=== PATIENT | male | born 1940 | race Caucasian/White ===

== ENCOUNTER → 2017-03-08 | Outpatient (CLI) | payer MEDICARE, BC ==
[2017-03-08] MEDS: IOHEXOL 300 MG/ML 75 ML VIAL. IV ONE (09:54)
--- NOTE | 2017-03-08 14:59 | RAD ---
EXAM: Bone scintigraphy. HISTORY: Prostate cancer, rising PSA, right hip pain. TECHNIQUE: Following the intravenous injection of 25.0 mCi of Tc-99m labeled methylene diphosphonate (MDP), delayed images of the whole body were performed in anterior and posterior projections. Comparison is made with today's CT in the prior study of 12/10/2015. FINDINGS: There is a new large focus of intense uptake within the right iliac wing corresponding with an ill-defined region of sclerosis on CT. This is consistent with a metastasis. Additional new metastases are seen within L5, T11 and the left 10th posterior rib. Additional questionable foci are suspected within the left anterior iliac wing and the left scapular body superomedially. 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 Uptake at the right mandible is likely odontogenic. IMPRESSION: 1. New metastatic deposits within the right iliac wing, T11, L5 and the left 10th posterior rib.
--- NOTE | 2017-03-08 15:04 | RAD ---
EXAM: CT abdomen/pelvis with contrast. HISTORY: Prostate cancer status post radiation therapy. Rising PSA. Right hip pain. TECHNIQUE: Computed tomography of the abdomen and pelvis was performed after the intravenous administration of iodinated contrast. COMPARISON: Today's bone scintigraphy. FINDINGS: Lung windows through the visualized portions of the bases reveal changes of interstitial lung disease and mild fibrosis. There is mild traction bronchiectasis in the costophrenic angles. The heart is at least mildly enlarged. Changes of coronary artery bypass grafting are partially visualized. Bone windows reveal ill-defined regions of sclerosis consistent with metastatic disease within T11, L5, the left posterior 10th rib and the right iliac wing, consistent with metastatic disease. The liver, gallbladder, pancreas, adrenal glands and spleen are unremarkable. Cysts in the kidneys measure up to 3 cm on the left. There are no pathologically enlarged lymph nodes. Radiation fiducial markers are seen within the prostate. There is no gross extracapsular extension of a prosthetic mass. There is a region of soft tissue density within the right aspect of the space of [place] which is indeterminate but may reflect prior inguinal hernia repair. A small right inguinal hernia persists and contains only fat. There is diffuse bladder wall thickening. IMPRESSION: 1. Interval development of osseous metastatic disease as above. 2. A soft tissue density within the right aspect of the space of Retzius may reflect a prior inguinal hernia repair. Correlate for such history. Small residual/recurrent fat-containing right inguinal hernia. 3. Diffuse bladder wall thickening indicates chronic outlet obstruction or inflammation. Correlate with urinalysis. 4. Interstitial lung disease and fibrosis in the costophrenic angles. 5. Mild cardiomegaly. *One or more of the following individualized dose reduction techniques were utilized for this examination: 1. Automated exposure control. 2. Adjustment of the mA and/or kV according to patient size. 3. Use of iterative reconstruction technique.
== END | disposition home or self-care (01) ==
LOC: NM 08:20
PROVIDERS: ATTEND Radiology Radiation Oncology
DX: C79.51 Secondary malignant neoplasm of bone (principal); C61 Malignant neoplasm of prostate; R97.21 Rising PSA following treatment for malignant neoplasm of prostate; J84.10 Pulmonary fibrosis, unspecified; J47.9 Bronchiectasis, uncomplicated; I51.7 Cardiomegaly; N28.1 Cyst of kidney, acquired; K40.91 Unilateral inguinal hernia, without obstruction or gangrene, recurrent; J98.4 Other disorders of lung; M25.551 Pain in right hip; Z92.3 Personal history of irradiation
CPT/HCPCS: 74177; 78306; 96374; A9503; Q9967

== ENCOUNTER 2018-03-26 20:08 | Inpatient (IN) | payer MEDICARE, BC ==
[~2018-03-26] VITALS: Ht 172.7 cm; Wt 77.6 kg
[2018-03-26] MEDS ORDERED: IV NORMAL SALINE 1,000ML 1,000 ML IV ONE (20:15)
--- NOTE | 2018-03-26 20:22 | ED.ADGEN ---
Past History Past Medical History: Anxiety, CAD, Cancer, COPD, GA, Prostatitis, Other Past Surgical History: Gastric Bypass, Other Adult General Chief Complaint Chief Complaint " He seem okay Monday... but he gotten more confused thru. the weekend... and got really confused today.. seem to have problem finding the right words.. or caring on a conversation with us... " Son's HPI HPI Patient is a 77 year old male who presents with hx of mental status change. Hx. of increased confusion, expressive aphasia, generalized weakness the last 3 days. . Pt. marked change today of generalized weakness, malaise and increase confusion. . . Pt. does have hx of Metastatic Prostate cancer to spine and just recently began spinal radiation for tx of pain. Pt. follows with Dr. Klein. Discussed pt. with Dr. Klein, states he has normally be fairly clear mentally. Pt. at [facility] refuse tx. of prostate cancer, but recently started on [place] treatments. Pt. in past has been DNR. Review of Systems Review of Systems Constitutional: Denies fever or chills [] Eyes: Denies change in visual acuity, redness, or eye pain [] HENT: Denies nasal congestion or sore throat [] Respiratory: Denies cough or shortness of breath [] Cardiovascular: No additional information not addressed in HPI [] GI: Denies abdominal pain, nausea, vomiting, bloody stools or diarrhea [] : Denies dysuria or hematuria [] Musculoskeletal: Denies back pain or joint pain [] Integument: Denies rash or skin lesions [] Neurologic: Denies headache, focal weakness or sensory changes [] Endocrine: Denies polyuria or polydipsia [] All other systems were reviewed and found to be within normal limits, except as documented in this note. Current Medications Current Medications Current Medications Medications (Trade) Dose Ordered Sig/Jacobo Start Time Stop Time Status Last Admin Dose Admin Ceftriaxone Sodium 1 gm/ Sodium Chloride 50 ml @ 100 mls/hr 1X ONCE 03/26/18 23:00 03/26/18 23:29 DC 03/26/18 22:56 100 MLS/HR Ceftriaxone Sodium (Rocephin) 1 gm STK-MED ONCE 03/26/18 22:51 03/26/18 22:52 DC Furosemide (Lasix) 40 mg 1X ONCE 03/26/18 23:15 03/26/18 23:16 DC 03/26/18 22:58 40 MG Lactated Ringer's 1,000 ml @ 160 mls/hr Q6H15M 03/26/18 22:30 03/27/18 05:57 160 MLS/HR Methylprednisolone Sodium Succinate (SOLU-Medrol 125MG VIAL) 125 mg 1X ONCE 03/26/18 23:00 03/26/18 23:01 DC 03/26/18 22:54 125 MG Ondansetron HCl (Zofran) 4 mg PRN Q4HRS PRN 03/26/18 22:30 03/27/18 22:29 Potassium Chloride (KCl Oral Soln) 40 meq 1X ONCE 03/26/18 23:00 03/26/18 23:01 DC 03/26/18 22:55 40 MEQ Sodium Chloride 50 ml @ As Directed STK-MED ONCE 03/26/18 22:50 03/26/18 22:51 DC Allergies Allergies Allergies Coded Allergies Type Severity Reaction Last Updated Verified No Known Drug Allergies 03/08/17 No Physical Exam Physical Exam Constitutional: Well developed, well nourished, no acute distress, non-toxic appearance. [] HENT: Normocephalic, atraumatic, bilateral external ears normal, oropharynx moist, no oral exudates, nose normal. [] Eyes: PERRLA, EOMI, conjunctiva normal, no discharge. [] Neck: Normal range of motion, no tenderness, supple, no stridor. [] Cardiovascular:Heart rate regular rhythm, no murmur [] Lungs & Thorax: Bilateral breath sounds clear to auscultation [] Abdomen: Bowel sounds normal, soft, no tenderness, no masses, no pulsatile masses. [] Skin: Warm, dry, no erythema, no rash. [] Back: No tenderness, no CVA tenderness. [] Extremities: No tenderness, no cyanosis, no clubbing, ROM intact, no edema. [] Neurologic: Alert and oriented X 3, normal motor function, normal sensory function, no focal deficits noted. [] Psychologic: Affect normal, judgement normal, mood normal. [] Current Patient Data Vital Signs Vital Signs Date Time Temp Pulse Resp B/P (MAP) Pulse Ox O2 Delivery O2 Flow Rate FiO2 03/26/18 23:37 97 24 116/59 (78) 97 Room Air 03/26/18 20:10 98.8 Lab Results Laboratory Tests Test 03/26/18 20:22 03/26/18 21:22 03/26/18 23:10 White Blood Count 7.9 x10^3/uL (4.0-11.0) Red Blood Count 3.17 x10^6/uL (4.30-5.70) L Hemoglobin 9.7 g/dL (13.0-17.5) L Hematocrit 29.5 % (39.0-53.0) L Mean Corpuscular Volume 93 fL (79-100) Mean Corpuscular Hemoglobin 31 pg (25-35) Mean Corpuscular Hemoglobin Concent 33 g/dL (31-37) Red Cell Distribution Width 16.7 % (11.5-14.5) H Platelet Count 359 x10^3/uL (140-400) Neutrophils (%) (Auto) 88 % (31-73) H Lymphocytes (%) (Auto) 4 % (24-48) L Monocytes (%) (Auto) 8 % (0-9) Eosinophils (%) (Auto) 0 % (0-3) Basophils (%) (Auto) 0 % (0-3) Neutrophils # (Auto) 6.9 x10^3uL (1.8-7.7) Lymphocytes # (Auto) 0.3 x10^3/uL (1.0-4.8) L Monocytes # (Auto) 0.7 x10^3/uL (0.0-1.1) Eosinophils # (Auto) 0.0 x10^3/uL (0.0-0.7) Basophils # (Auto) 0.0 x10^3/uL (0.0-0.2) Erythrocyte Sedimentation Rate > 130 (0-15) H Prothrombin Time 11.5 SEC (9.4-11.4) H Prothrombin Time INR 1.2 (0.9-1.1) H PTT 35 SEC (23-33) H Sodium Level 134 mmol/L (136-145) L Potassium Level 3.1 mmol/L (3.5-5.1) L Chloride Level 99 mmol/L (98-107) Carbon Dioxide Level 22 mmol/L (21-32) Anion Gap 13 (6-14) Blood Urea Nitrogen 11 mg/dL (8-26) Creatinine 0.8 mg/dL (0.7-1.3) Estimated GFR (Cockcroft-Gault) 93.5 Glucose Level 137 mg/dL (70-99) H Lactic Acid Level 1.8 mmol/L (0.4-2.0) Calcium Level 7.7 mg/dL (8.5-10.1) L Magnesium Level 1.9 mg/dL (1.8-2.4) Ammonia 18 mcmol/L (11-34) Creatine Kinase 730 U/L (39-308) H Creatine Kinase MB (Mass) < 0.5 ng/mL (0.0-3.6) Creatine Kinase MB Relative Index 0.1 % (0-4) Troponin I Quantitative 0.022 ng/mL (0-0.055) YZ-Had-S-Type Natriuretic Peptide 1795 pg/mL (0-449) H Ethyl Alcohol Level < 10 mg/dL (0-10) Urine Collection Type Unknown Urine Color Pia Urine Clarity Hazy Urine pH 7.0 Urine Specific [place] 1.020 Urine Protein 100 mg/dl (NEG-TRACE) Urine Glucose (UA) Neg mg/dL (NEG) Urine Ketones (Stick) 15 mg/dL (NEG) Urine Blood Neg (NEG) Urine Nitrite Neg (NEG) Urine Bilirubin Neg (NEG) Urine Urobilinogen Dipstick 4 mg/dL (0.2 mg/dL) Urine Leukocyte Esterase Neg (NEG) Urine RBC 3-5 /HPF (0-2) Urine WBC 5-10 /HPF (0-4) Urine Squamous Epithelial Cells Few /LPF Urine Bacteria 0 /HPF (0-FEW) Urine Hyaline Casts Few /HPF Urine Mucus Slight /LPF Urine Opiates Screen Neg (NEG) Urine Methadone Screen Neg (NEG) Urine Barbiturates Neg (NEG) Urine Phencyclidine Screen Neg (NEG) Urine Amphetamine/Methamphetamine Neg (NEG) Urine Benzodiazepines Screen Neg (NEG) Urine Cocaine Screen Neg (NEG) Urine Cannabinoids Screen Neg (NEG) Urine Ethyl Alcohol Neg (NEG) Blood pH 7.42 (7.35-7.46) Blood Gas PCO2 28 mmHg (35-46) L Blood Gas PO2 104 mmHg (71-100) H Blood Gas HCO3 18 mmol/L (21-28) L Arterial Bld O2 Saturation (Calc) 98 % (92-99) FiO2 28 % EKG EKG My interpretation of monitor shows a paced rhythm with periodic PVCs.[] Does have findings consistent with atrial flutter versus A. fib. My interpretation EKG shows atrial flutter with ventricular PVCs. Right axis deviation. Radiology/Procedures Radiology/Procedures My interpretation of chest x-ray shows cardiomegaly with left basilar atelectasis. Findings of previous coronary artery bypass past graft wires and pacer. Degenerative joint changes. No free air in the diaphragm. My interpretation of abdomen film shows some distended bowel loops. But in non- obstructive bowel gas pattern. Does have enlarged prostate. Appears to have implantation of radium and prostate. Does have lytic lesions of pelvis there appears to be marked degenerative joint changes and significant osteolytic changes of L5.[] My interpretation CT head and cervical shows no shift, mass, edema, bleed, or fracture. Does have significant degenerative joint changes of cervical spine. Does have significant atrophy changes at brain parenchyma.. Does have multiple focal sclerotic regions consistent with osteoblastic changes of metastatic lesions. See formal reports are available. Course & Med Decision Making Course & Med Decision Making Pertinent Labs and Imaging studies reviewed. (See chart for details) Pt. and family advised he wants to be DNR- No intubation, shocks or CPR. Will accept meds. Plan Admit to Tele.- Dr. Liang, Neuro consult in morning. Pt. mentation has improved since arrival to ED with fluids, steroids, KCL. Discussed options of home care including hospice with family members and patient. Discussed presentation, testing and treatment plan with . [] Final Impression Final Impression 1. Mental Status Change[] 2. Confusion 3. Elevated ESR >130 4. Anemia 9.7 5. Hyponatremia 134 6. Hypokalemia 3.1 7. DM 137 8. Elevated CK 730 9. CHF- BNP 1,795 10. Metastatic Prostate Cancer - Hip, Pelvis, Lumbar spine - getting Ra 223- last dosage 03/20 Winifred Disclaimer Julioon Disclaimer This electronic medical record was generated, in whole or in part, using a voice recognition dictation system. MAEGAN CRANE MD Mar 26, 2018 20:22
[2018-03-26 20:41] LABS: BASO % 0 % (0-3); EOS % 0 % (0-3); HEMATOCRIT 29.5 % (39.0-53.0); HEMOGLOBIN 9.7 g/dL (13.0-17.5); LYMPH # 0.3 x10^3/uL (1.0-4.8); LYMPH % 4 % (24-48); MEAN CORPUSCULAR HEMOGLOBIN 31 pg (25-35); MEAN CORPUSCULAR HGB CONC 33 g/dL (31-37); MEAN CORPUSCULAR VOLUME 93 fL (79-100); MONO # 0.7 x10^3/uL (0.0-1.1); MONO % 8 % (0-9); NEUT # 6.9 x10^3uL (1.8-7.7); NEUT % 88 % (31-73); PLATELET COUNT 359 x10^3/uL (140-400); RED BLOOD COUNT 3.17 x10^6/uL (4.30-5.70); RED CELL DISTRIBUTION WIDTH 16.7 % (11.5-14.5); WHITE BLOOD COUNT 7.9 x10^3/uL (4.0-11.0)
--- NOTE | 2018-03-26 21:03 | RAD ---
PQRS Compliance statement: One or more of the following individualized dose reduction techniques were utilized for this examination: 1. Automated exposure control. 2. Adjustment of the mA and/or kV according to patient size. 3. Use of iterative reconstruction technique. Indication:Fall, headache and neck pain TECHNIQUE: CT head without IV contrast COMPARISON:None FINDINGS: No pathologic extra-axial or intra-axial fluid collection. Mild diffuse cerebral atrophy. The ventricles and basal cisterns are within normal limits. No acute intracranial bleed. Mild periventricular and deep white matter low-attenuation is seen. No focal loss of [place]-white differentiation. No acute calvarial fractures. Visualized paranasal sinuses and mastoid air cells are clear. No large scalp hematoma. Orbits are within normal limits. IMPRESSION: 1. No acute intracranial bleed. 2. Mild diffuse cerebral atrophy with white matter changes most likely secondary to chronic microvascular ischemic disease. Indication:Fall, headache and neck pain TECHNIQUE: CT of the cervical spine without IV contrast with multiplanar reformats. COMPARISON:None FINDINGS: Cervical spine is in normal anatomic alignment. Atlantoaxial joint interval is preserved. No compression deformities. Facet joints are in normal anatomic alignment. Moderate C5-C6 and C6-C7 degenerative disc disease. No acute fractures. Multifocal sclerotic lesions are seen in the bones. The noncontrast appearance of the neck soft tissue is within normal limits. Significant atherosclerotic burden seen in the right carotid bulb. Visualized lung apices are clear. IMPRESSION: 1. No acute fractures. 2. 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 Electronically signed by: Hima Baer DO (03/26/2018 8:59 PM) [facility]
[2018-03-26 21:22] LABS: ANION GAP 13 (6-14); BLOOD UREA NITROGEN 11 mg/dL (8-26); CALCIUM 7.7 mg/dL (8.5-10.1); CARBON DIOXIDE 22 mmol/L (21-32); CHLORIDE 99 mmol/L (98-107); CREATININE 0.8 mg/dL (0.7-1.3); GFR 93.5; GLUCOSE 137 mg/dL (70-99); MAGNESIUM 1.9 mg/dL (1.8-2.4); POTASSIUM 3.1 mmol/L (3.5-5.1); SODIUM 134 mmol/L (136-145)
--- NOTE | 2018-03-26 21:41 | RAD ---
Indication:Dyspnea TECHNIQUE:Portable AP chest X-ray COMPARISON:None FINDINGS: Left chest wall cardiac pacer is seen with its leads projecting over the heart. Median sternotomy noted. Heart is normal in size. Lungs are clear. No pneumothorax or pleural effusion. Visualized bony thorax is within normal limits. IMPRESSION: No acute pulmonary process. Electronically signed by: Hima Baer DO (03/26/2018 9:37 PM) [facility]
[2018-03-26 21:48] LABS: AMPHETAMINE/METHAMPHETAMINE NEG (NEG); BARBITURATES NEG (NEG); BENZODIAZEPINES NEG (NEG); CANNABINOIDS NEG (NEG); COCAINE NEG (NEG); METHADONE NEG (NEG); OPIATES NEG (NEG); PHENCYCLIDINE NEG (NEG)
[2018-03-26 21:59] LABS: BACTERIA,URINE 0 /HPF (0-FEW); BILIRUBIN,URINE NEG (NEG); CLARITY,URINE HAZY; COLOR,URINE AMBER; GLUCOSE,URINE NEG (NEG); NITRITE,URINE NEG (NEG); SQUAMOUS EPITHELIAL CELL,UR FEW /LPF; UROBILINOGEN,URINE 4 mg/dL (0.2 mg/dL)
[2018-03-26 22:00] LABS: HYALINE CASTS, URINE FEW /HPF
[2018-03-26 22:04] LABS: SEDIMENTATION RATE > 130 (0-15)
[2018-03-26] MEDS ORDERED: ONDANSETRON PF 4 MG/2 ML VIAL. IV PRN (22:30)
[2018-03-26] MEDS ORDERED: IV NORMAL SALINE 50ML 50 ML ONE (22:50)
[2018-03-26] MEDS ORDERED: cefTRIAXone SODIUM 1 GM VIAL IV ONE (22:51)
[2018-03-26] MEDS: IV RINGERS SOLUTION,LACTATED 1,000 ML IV SCH (22:54)
[2018-03-26] MEDS ORDERED: POTASSIUM CHLORIDE 20 MEQ/15 ML ORAL LIQUID. PO ONE (23:00)
[2018-03-26] MEDS ORDERED: methylPREDNISolone SOD SUCC PF 125 MG/2 ML VIAL. IV ONE (23:00)
[2018-03-26] MEDS ORDERED: FUROSEMIDE 40 MG/4 ML VIAL IVP ONE (23:15)
--- NOTE | 2018-03-26 23:53 | RAD ---
Indication: Abdominal pain and distention TECHNIQUE: 2 views of the abdomen and pelvis COMPARISON: None FINDINGS: Visualized lung bases are clear. Heart is normal in size. No evidence of pneumoperitoneum. No abnormally dilated bowel loops. Visualized bones are within normal limits. IMPRESSION: Nonspecific bowel gas pattern. No evidence of high-grade bowel obstruction. Electronically signed by: Hima Baer DO (03/26/2018 11:49 PM) [facility]
[2018-03-27 00:17] VITALS: BP 110/67
[2018-03-27] MEDS ORDERED: PRED5TAB PO (03:02)
[2018-03-27] MEDS ORDERED: ASPI-630 PO (03:02)
[2018-03-27] MEDS ORDERED: ABIR500T PO (03:02)
[2018-03-27] MEDS ORDERED: FISH12002 PO (03:02)
[2018-03-27] MEDS ORDERED: CALC-30 PO (03:02)
[2018-03-27] MEDS ORDERED: ATOR20TA58 PO (03:02)
[2018-03-27] MEDS ORDERED: AMLO5TAB7 PO (03:02)
[2018-03-27] MEDS ORDERED: FOLI1TAB16 PO (03:02)
[2018-03-27] MEDS ORDERED: CHOL200074 PO (03:02)
[2018-03-27] MEDS ORDERED: VENL37.56 PO (03:02)
[2018-03-27] MEDS ORDERED: TRAZ-86 PO (03:02)
[2018-03-27 05:28] VITALS: BP 122/69
[2018-03-27] MEDS: IV RINGERS SOLUTION,LACTATED 1,000 ML IV SCH (05:57)
[2018-03-27 06:12] LABS: BASO # 0.1 x10^3/uL (0.0-0.2); BASO % 1 % (0-3); EOS % 0 % (0-3); HEMATOCRIT 30.2 % (39.0-53.0); LYMPH # 0.2 x10^3/uL (1.0-4.8); LYMPH % 3 % (24-48); MEAN CORPUSCULAR HEMOGLOBIN 31 pg (25-35); MEAN CORPUSCULAR HGB CONC 33 g/dL (31-37); MEAN CORPUSCULAR VOLUME 94 fL (79-100); MONO # 0.3 x10^3/uL (0.0-1.1); MONO % 4 % (0-9); NEUT # 5.9 x10^3uL (1.8-7.7); NEUT % 92 % (31-73); PLATELET COUNT 339 x10^3/uL (140-400); RED BLOOD COUNT 3.23 x10^6/uL (4.30-5.70); WHITE BLOOD COUNT 6.3 x10^3/uL (4.0-11.0)
[2018-03-27 06:15] LABS: CALCIUM 7.6 mg/dL (8.5-10.1); CREATININE 0.7 mg/dL (0.7-1.3); GFR 109.1
[2018-03-27 06:17] LABS: POTASSIUM 2.9 mmol/L (3.5-5.1)
[2018-03-27] MEDS ORDERED: POTASSIUM CHLORIDE 20 MEQ TABLET.ER. PO ONE ×4 (06:30→09:30)
[2018-03-27] MEDS: IPRATRPIUM/ALBUTEROL 0.5/2.5MG 3 ML NEBU. NEB SCH ×2 (08:00→12:00)
[2018-03-27] MEDS: CHOLECALCIFEROL (VITAMIN D3) 1,000 UNIT TABLET PO SCH (08:28)
[2018-03-27] MEDS: FOLIC ACID 1 MG TABLET PO SCH (08:29)
[2018-03-27] MEDS: traZODone 100 MG TABLET. PO SCH ×2 (08:29→20:44)
[2018-03-27] MEDS: ASPIRIN 81 MG TAB.CHEW PO SCH (08:29)
[2018-03-27] MEDS: OMEGA-3 FATTY ACIDS/FISH OIL 1,000 MG CAPSULE. PO SCH (08:29)
[2018-03-27] MEDS: ATORVASTATIN CALCIUM 20 MG TABLET PO SCH (08:29)
[2018-03-27] MEDS: CALCIUM CARB/VIT D3 500/200 TABLET PO SCH (08:30)
[2018-03-27] MEDS: amLODIPine BESYLATE 5 MG TABLET PO SCH (08:30)
[2018-03-27] MEDS: predniSONE 5 MG TABLET PO SCH ×2 (08:30→20:44)
[2018-03-27] MEDS: NON FORMULARY ITEM (Abiraterone Acetate (Zytiga) 1,000 MG) PO SCH (09:00)
[2018-03-27 10:49] VITALS: BP 112/59
[2018-03-27] MEDS: VENLAFAXINE 37.5 MG TABLET. PO SCH ×2 (11:34→20:44)
[2018-03-27 12:35] LABS: CREATININE 1.1 mg/dL (0.7-1.3); GFR 64.7
[2018-03-27 12:37] LABS: POTASSIUM 2.6 mmol/L (3.5-5.1)
[2018-03-27] MEDS: POTASSIUM CL 40MEQ IN 0.9%NACL 1,000 ML IV SCH ×2 (13:09→22:51)
[2018-03-27 14:56] VITALS: BP 114/65
[2018-03-27] MEDS ORDERED: MAGNESIUM SULFATE 2GM 50 ML IV ONE (16:00)
--- NOTE | 2018-03-27 16:56 | HP ---
ADMIT DATE: 03/27/2018 HISTORY OF PRESENT ILLNESS: The patient is a 77-year-old male patient, who apparently was brought by his family as he has been increasingly confused. He has expressive aphasia, unable to find words, generalized weakness for the last 3 days. The weakness has dramatically worsened yesterday and therefore he was brought to the Emergency Room for further evaluation and treatment. He apparently was diagnosed with prostate cancer. On 08/2015 he underwent biopsy confirmation. In 11/2015 he was treated with Firmagon on 11/2015 and received definitive radiation to pelvic nodes and prostate to post of 78 Gy to his final volume. On 04/2016 he received Eligard. On 10/2016 he then developed rising PSA level to 40.17. On 03/2017 restaging evaluation revealed blastic metastatic osseous disease. He has significant low back and hip pain. He received 30 Gy to L5 and 15 Gy to his right iliac metastasis, completed in 05/2017. He has then been on salvage systemic treatment with Zytiga and prednisone beginning on 05/2017 and has received further chemotherapy with radium recently. PAST MEDICAL HISTORY: Significant for coronary artery disease, status post coronary artery bypass graft surgery and PCI with stent deployment, atrial fibrillation, hypertension, hyperlipidemia, obstructive sleep apnea and obviously prostate cancer. PAST SURGICAL HISTORY: Significant for PCI with stent deployment, coronary artery bypass graft surgery, bilateral cataract extraction, colonoscopy x 3. ALLERGIES: He has no known drug allergies. MEDICATIONS: He is on Zytiga 1000 mg daily, atorvastatin calcium 20 mg at bedtime, amlodipine besylate 5 mg daily, aspirin 81 mg once a day, trazodone 100 mg p.o. b.i.d., venlafaxine 37.5 mg twice a day, calcium carbonate with vitamin D3 one tablet once a day, prednisone 5 mg twice a day, folic acid 1 mg daily. He is on cholecalciferol for vitamin D3 2000 international units once a day, and omega 3 fatty acids 1200 mg daily. FAMILY HISTORY: He has 1 sister is still alive, but does not keep in touch with, his one brother of pancreatic cancer, one brother of myocardial infarction. His father at the age of 48 because of CVA. Mother in the age of 70 because of pancreatic cancer. SOCIAL HISTORY: He is , lives alone. He has 2 sons. He quit smoking on 12/1981. He smoked 1 pack a day for almost 30 years. He retired recently from [employer] and currently works for a home. REVIEW OF SYSTEMS: The patient has bilateral cataract extraction, but denied any glaucoma or macular degeneration. Denied any earache, tinnitus or sensorineural deafness. Denied any nosebleeds, stuffy nose or postnasal drip. Denied any sore throat, sore tongue. He denied any nausea, vomiting, diarrhea or constipation. Denied any hematemesis, melena or hematochezia. Denied any dysuria or frequency. He did complain of frequency, but denied any hematuria. Denied any chest pain, shortness of breath, orthopnea, paroxysmal nocturnal dyspnea. Denied any cough, phlegm or hemoptysis. Denied any chills, rigors or fever. PHYSICAL EXAMINATION: GENERAL: On arrival to the Emergency Room, apparently he was extremely confused and according to his son, he was unable to say even two words. VITAL SIGNS: Well developed, well-nourished, in no acute distress, nontoxic appearance. HEAD, EYES, EARS, NOSE, AND THROAT: Showed normocephalic, atraumatic. NECK: Supple. HEART: Showed normal first and second heart sounds. No gallop, rub or murmur. CHEST: Clear to auscultation. No crepitation or rhonchi. ABDOMEN: Distended, soft, nontender. No guarding or rigidity. No organomegaly. All hernial orifice intact. Bowel sounds normal. NEUROLOGIC: He was very confused initially when he arrived, but he has no obvious motor or sensory deficit. LABORATORY DATA: On arrival showed that his serum sodium was 134, potassium 3.1, chloride 99, bicarbonate 22, anion gap of 13, BUN 11, creatinine 0.8, estimated GFR was 93 mL per minute, his glucose 137, calcium was 7.7, lactic acid was 1.8. His ammonia was only 18. His CK was 730 and beta natriuretic peptide was 1795. His white cell count was 7900, hemoglobin 9.7, hematocrit 29.5, MCV 93, and platelet count of 359,000. His prothrombin time was 11.5, INR 1.2, APTT was 35. His urinalysis was essentially unremarkable. Urine was estephania, hazy with a pH of 7, specific gravity 1.020. There is large amount of protein, negative for glucose. There was trace of ketones, negative for blood, nitrite and leukocyte esterase, 3-5 rbc's, 5-10 wbc's, and no bacteria. His toxic screen was essentially negative. His CT scan of the head and cervical spine showed that he has no acute intracranial bleed, mild diffuse cerebral atrophy with white matter changes most likely secondary to chronic microvascular ischemic disease. His cervical spine CT scan showed normal anatomical alignment. The atlantoaxial joint interval is preserved. No acute fracture, multifocal sclerotic lesion highly concerning for osteoblastic metastases. His chest x-ray showed left chest wall cardiac pacemaker is seen with its leads projecting into the heart. Median sternotomy noted. Heart is normal in size. Lungs are clear. No pneumothorax. Visualized bony thorax is normal. His abdominal x-ray showed that the visualized lung bases are clear. Heart is normal in size, no evidence of pneumoperitoneum, no abnormality detected. Obviously so far all his lab works apart from hypokalemia are within acceptable range. There is no evidence of any intracranial pathology. Metabolically other than the potassium there is no other abnormality to explain his abnormal altered mental status and looking at his medication he is not on any narcotic that might have been responsible for that. ELEANOR SHABAZZ MD DR: LATASHA/viviana JOB#: [id number] / [id number]
[2018-03-27] MEDS ORDERED: ENOXAPARIN 40 MG/0.4 ML SYRINGE. SQ SCH (17:00)
[2018-03-27] MEDS: POTASSIUM CHLORIDE 20 MEQ TABLET.ER. PO SCH ×3 (17:25→20:44)
[2018-03-27 18:55] LABS: CREATININE 0.7 mg/dL (0.7-1.3); GFR 109.1; MAGNESIUM 2.2 mg/dL (1.8-2.4); POTASSIUM 4.8 mmol/L (3.5-5.1)
[2018-03-27 19:25] VITALS: BP 109/59
--- NOTE | 2018-03-28 01:01 | PN ---
DATE: 03/27/2018 SUBJECTIVE: The patient is sitting, propped up in bed, in no apparent distress. He is awake, alert. He denied any complaint. His son stated that he is definitely much improved than yesterday. He is fully awake, alert, back to his normal personality. PHYSICAL EXAMINATION: GENERAL: When I examined him, he looked pale, no jaundice, cyanosis, or thyromegaly. No jugular venous distension. No limb edema. VITAL SIGNS: His heart rate was 85, blood pressure was 114/65, temperature was 97.3, respiratory rate was 20, and oxygen saturation was 95%. HEAD, EYES, EARS, NOSE AND THROAT: Showed normocephalic, atraumatic. NECK: Supple. HEART: Showed normal first and second heart sounds with no gallop, rub or murmur. CHEST: Clear to auscultation. No crepitation or rhonchi. ABDOMEN: Distended, soft, nontender. No guarding or rigidity. No organomegaly. All hernial orifice intact. Bowel sounds normal. NEUROLOGIC: He is awake, alert, responding appropriately. Her cranial nerves intact. He moves extremities without difficulty. According to him, he ambulates at home without assistance or assistive devices, although he has a walker and a cane. His intake over the last 24 hours was 1050. LABORATORY DATA: His lab work this morning showed a white cell count 6300, hemoglobin 10, hematocrit 30, MCV 94 and platelet count of 339,000 with normal manual differential. His chemistry this morning showed a serum sodium 139, potassium 2.9, chloride 103, bicarbonate 21, anion gap of 15, her BUN of 14, creatinine 0.7, estimated GFR was 109, glucose 176 and calcium was 7.6. His prothrombin time was 11.5, INR 1.2, APTT was 35. Urinalysis was unremarkable as well as his toxic screen. ASSESSMENT: Altered mental status, improved; hypokalemia ____ has worsened. I did order oral potassium 40 mEq x 3 and to repeat his potassium around noon today. Other issues include metastatic prostate cancer, for which he is on Zytiga and also radium treatment. ELEANOR SHABAZZ MD DR: LATASHA/viviana JOB#: [id number] / [id number]
[2018-03-28] MEDS: NON FORMULARY ITEM (Abiraterone Acetate (Zytiga) 1,000 MG) PO SCH (03:56)
[2018-03-28 05:35] VITALS: BP 116/66
[2018-03-28 07:48] LABS: BASO % 0 % (0-3); EOS % 0 % (0-3); HEMATOCRIT 28.3 % (39.0-53.0); HEMOGLOBIN 9.3 g/dL (13.0-17.5); LYMPH # 0.2 x10^3/uL (1.0-4.8); LYMPH % 2 % (24-48); MEAN CORPUSCULAR HEMOGLOBIN 31 pg (25-35); MEAN CORPUSCULAR HGB CONC 33 g/dL (31-37); MEAN CORPUSCULAR VOLUME 94 fL (79-100); MONO # 0.5 x10^3/uL (0.0-1.1); MONO % 6 % (0-9); NEUT # 8.8 x10^3uL (1.8-7.7); NEUT % 92 % (31-73); PLATELET COUNT 358 x10^3/uL (140-400); RED BLOOD COUNT 3.01 x10^6/uL (4.30-5.70); RED CELL DISTRIBUTION WIDTH 17.3 % (11.5-14.5); WHITE BLOOD COUNT 9.6 x10^3/uL (4.0-11.0)
[2018-03-28] MEDS: VENLAFAXINE 37.5 MG TABLET. PO SCH (08:05)
[2018-03-28] MEDS: predniSONE 5 MG TABLET PO SCH (08:06)
[2018-03-28] MEDS: FOLIC ACID 1 MG TABLET PO SCH (08:06)
[2018-03-28] MEDS: OMEGA-3 FATTY ACIDS/FISH OIL 1,000 MG CAPSULE. PO SCH (08:06)
[2018-03-28] MEDS: ASPIRIN 81 MG TAB.CHEW PO SCH (08:06)
[2018-03-28] MEDS: CALCIUM CARB/VIT D3 500/200 TABLET PO SCH (08:06)
[2018-03-28] MEDS: CHOLECALCIFEROL (VITAMIN D3) 1,000 UNIT TABLET PO SCH (08:07)
[2018-03-28] MEDS: amLODIPine BESYLATE 5 MG TABLET PO SCH (08:07)
[2018-03-28] MEDS: ATORVASTATIN CALCIUM 20 MG TABLET PO SCH (08:07)
[2018-03-28 08:11] LABS: CALCIUM 8.1 mg/dL (8.5-10.1); CREATININE 0.7 mg/dL (0.7-1.3); GFR 109.1; POTASSIUM 5.4 mmol/L (3.5-5.1)
[2018-03-28] MEDS: traZODone 100 MG TABLET. PO SCH (08:23)
[2018-03-28] MEDS: POTASSIUM CL 40MEQ IN 0.9%NACL 1,000 ML IV SCH (08:29)
[2018-03-28 10:39] VITALS: BP 112/67
[2018-03-28 14:19] VITALS: BP 98/57
[2018-03-28] MEDS ORDERED: FUROSEMIDE 20 MG/2 ML VIAL IVP ONE (14:45)
[2018-03-29 07:51] LABS: BGAS PH 7.41 (7.35-7.46)
== END 2018-03-28 15:37 | disposition home health service (06) | DRG 641 ==
LOC: ER 20:08 → 1 SOUTH 23:55
PROVIDERS: ADMIT Internal Medicine; ATTEND Internal Medicine
DX: E87.6 Hypokalemia (principal); R47.01 Aphasia; C61 Malignant neoplasm of prostate; G47.33 Obstructive sleep apnea (adult) (pediatric); I25.10 Atherosclerotic heart disease of native coronary artery without angina pectoris; I48.91 Unspecified atrial fibrillation; I10 Essential (primary) hypertension; F41.9 Anxiety disorder, unspecified; E78.5 Hyperlipidemia, unspecified; J44.9 Chronic obstructive pulmonary disease, unspecified; Z66 Do not resuscitate; Z80.0 Family history of malignant neoplasm of digestive organs; Z82.3 Family history of stroke; Z79.899 Other long term (current) drug therapy; Z95.1 Presence of aortocoronary bypass graft; Z87.891 Personal history of nicotine dependence; Z85.46 Personal history of malignant neoplasm of prostate; Z98.42 Cataract extraction status, left eye; Z98.84 Bariatric surgery status; Z98.41 Cataract extraction status, right eye
CPT/HCPCS: 36415; 70450; 71045; 72125; 74021; 80048; 80307; 81001; 82140; 82553; 82803; 83605; 83735; 83880; 84484; 85025; 85610; 85651; 85730; 87040; 87086; 93005; G0480; J0696; J1650; J1940; J2930; J3475; J7120; J7512; J7030

== ENCOUNTER 2019-02-08 23:48 | Emergency (ER) | payer MEDICARE, BC ==
[~2019-02-08] VITALS: Ht 172.7 cm; Wt 88.5 kg
[~2019-02-08 23:48] MED LIST: ABIR500T PO; AMLO5TAB10 PO; ASPI-630 PO; ATOR20TA58 PO; CALC-30 PO; CHOL200074 PO; FISH12002 PO; FOLI1TAB16 PO; PRED5TAB PO; TRAZ-86 PO; VENL37.56 PO
--- NOTE | 2019-02-09 00:04 | ED.ADGEN ---
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 I was in the bathroom.. I was just standing there... I guess I passed out.. ..."." I am fine" " Just discharge me home".. (Pt. ) " He 's been a lot more weak since last Monday.. but I found him in the bathroom with his head up against the wall... I got him turned around and laying down.. then after we got him up in the chair and when trades helper arrived he had a vomiting episode... " ( Son) HPI HPI Patient is a 78 year old male who presents with above hx and complaints of syncope. Pt. does not recall events prior to the syncopal episode. Patient denies any current pain or injury other than where he hit his head. . Patient does have a history of cardiac disease with bypass surgery in 1981 at [facility]. Has had a pacer placed approximating 8 tingling months ago at [facility]. Pt. hx of " Bone Cancer", follow s with oncology at [facility]. Recent course of Steroids and Radiation tx. at [facility] for compression of Lt. fa cial nerve. Patient denies any change in meds. Patient normally follows with Dr. Will. No recent travel or specific ill contacts. Review of Systems Review of Systems Somewhat poor or reluctant historian Constitutional: Denies fever or chills [] Eyes: Denies change in visual acuity, redness, or eye pain [] HENT: Denies nasal congestion or sore throat [] Respiratory: Denies cough or shortness of breath [] Cardiovascular: No additional information not addressed in HPI [] GI: Denies abdominal pain, , bloody stools or diarrhea []Complaints of nausea and vomiting. : Denies dysuria or hematuria [] Musculoskeletal: Denies back pain or joint pain []Complaints of generalized weakness last 2 weeks. Integument: Denies rash or skin lesions [] Neurologic: Complaints of mild headache posterior scalp.. Denies, focal weakness or sensory changes . Complaints of syncope and dizzy. Endocrine: Denies polyuria or polydipsia [] All other systems were reviewed and found to be within normal limits, except as documented in this note. Family History Family History Noncontributory Current Medications Current Medications Current Medications Medications (Trade) Dose Ordered Sig/Jacobo Start Time Stop Time Status Last Admin Dose Admin Ceftriaxone Sodium 1 gm/ Sodium Chloride 50 ml @ 100 mls/hr 1X ONCE 02/09/19 01:30 02/09/19 01:59 DC 02/09/19 02:05 100 MLS/HR Ceftriaxone Sodium (Rocephin) 1 gm STK-MED ONCE 02/09/19 01:53 02/09/19 01:54 DC Enoxaparin Sodium (Lovenox 80mg Syringe) 80 mg 1X ONCE 02/09/19 02:00 02/09/19 02:01 DC 02/09/19 02:52 80 MG Info (Do NOT chart on this entry -- for MONITORING) 1 each PRN DAILY PRN 02/09/19 01:45 02/09/19 05:21 DC Iohexol (Omnipaque 240 Mg/ml) 30 ml 1X ONCE 02/09/19 02:00 02/09/19 02:01 DC 02/09/19 02:26 30 ML Iohexol (Omnipaque 350 Mg/ml) 100 ml 1X ONCE 02/09/19 02:00 02/09/19 02:01 DC 02/09/19 02:26 100 ML Lactated Ringer's 1,000 ml @ 1,000 mls/hr 1X ONCE 02/09/19 02:00 02/09/19 02:59 DC Magnesium Sulfate 50 ml @ 25 mls/hr 1X ONCE 02/09/19 02:00 02/09/19 03:59 DC 02/09/19 03:07 25 MLS/HR Methylprednisolone Sodium Succinate (SOLU-Medrol 125MG VIAL) 125 mg 1X ONCE 02/09/19 02:00 02/09/19 02:01 DC 02/09/19 02:10 125 MG Ondansetron HCl (Zofran) 8 mg 1X ONCE 02/09/19 00:30 02/09/19 00:31 DC Sodium Bicarbonate (Sodium Bicarbonate) 50 meq 1X ONCE 02/09/19 02:00 02/09/19 02:01 DC 02/09/19 02:50 50 MEQ Sodium Bicarbonate (Sodium Bicarb Adult 8.4% Syr) 50 meq 1X ONCE 02/09/19 02:00 02/09/19 02:01 DC Sodium Chloride 500 ml @ As Directed STK-MED ONCE 02/09/19 03:14 02/09/19 03:14 DC Vancomycin HCl (Vanco Per Pharmacy) 1 each PRN DAILY PRN 02/09/19 03:00 02/09/19 05:21 DC Vancomycin HCl (Vancomycin) 1 gm STK-MED ONCE 02/09/19 03:14 02/09/19 03:14 DC Vancomycin HCl 1 gm/Sodium Chloride 250 ml @ 250 mls/hr 1X ONCE 02/09/19 03:00 02/09/19 03:59 UNV Vancomycin HCl 2 gm/Sodium Chloride 500 ml @ 250 mls/hr 1X ONCE 02/09/19 03:30 02/09/19 05:21 DC 02/09/19 03:28 250 MLS/HR Allergies Allergies Allergies Coded Allergies Type Severity Reaction Last Updated Verified No Known Drug Allergies 03/08/17 No Physical Exam Physical Exam Constitutional: no acute distress, non-toxic appearance. [] HENT: Normocephalic, contusion posterior scalp, bilateral external ears normal, oropharynx moist, no oral exudates, nose normal. [] Eyes: PERRLA, EOMI, conjunctiva normal, no discharge. [] Neck: Normal range of motion, no tenderness, supple, no stridor. [] Cardiovascular; irregular rate and rhythm: PMI to the left. Monitor shows paced rhythm occasionally Lungs & Thorax: Bilateral breath sounds with apex auscultation []midline bypass scar. Pacemaker left subclavian area Abdomen: Bowel sounds normal, soft, no tenderness, no masses, no pulsatile masses. [Old surgery scar Skin: Warm, dry, no erythema, no rash. [] Or turgor Back: No tenderness, no CVA tenderness. [] Extremities: No tenderness, no cyanosis, no clubbing, ROM intact, no edema. [] Arthritic changes Neurologic: Alert and oriented X 3, moves all extremities on request, does have distal sensory, no focal deficits noted. [] Psychologic: Affect angry that he was transported to emergency department, judgement normal, mood normal. [] Current Patient Data Vital Signs Vital Signs Date Time Temp Pulse Resp B/P (MAP) Pulse Ox O2 Delivery O2 Flow Rate FiO2 02/09/19 04:45 69 19 153/67 (95) 94 Nasal Cannula 2.0 02/08/19 23:48 98.9 Lab Results Laboratory Tests Test 02/09/19 00:01 02/09/19 04:00 White Blood Count 3.3 x10^3/uL (4.0-11.0) L Red Blood Count 2.80 x10^6/uL (4.30-5.70) L Hemoglobin 10.1 g/dL (13.0-17.5) L Hematocrit 28.9 % (39.0-53.0) L Mean Corpuscular Volume 103 fL (79-100) H Mean Corpuscular Hemoglobin 36 pg (25-35) H Mean Corpuscular Hemoglobin Concent 35 g/dL (31-37) Red Cell Distribution Width 15.6 % (11.5-14.5) H Platelet Count 176 x10^3/uL (140-400) Neutrophils (%) (Auto) 80 % (31-73) H Lymphocytes (%) (Auto) 8 % (24-48) L Monocytes (%) (Auto) 10 % (0-9) H Eosinophils (%) (Auto) 1 % (0-3) Basophils (%) (Auto) 1 % (0-3) Neutrophils # (Auto) 2.7 x10^3uL (1.8-7.7) Lymphocytes # (Auto) 0.3 x10^3/uL (1.0-4.8) L Monocytes # (Auto) 0.3 x10^3/uL (0.0-1.1) Eosinophils # (Auto) 0.0 x10^3/uL (0.0-0.7) Basophils # (Auto) 0.0 x10^3/uL (0.0-0.2) Segmented Neutrophils % 80 % (35-66) H Band Neutrophils % 3 % (0-9) Lymphocytes % 6 % (24-48) L Monocytes % 8 % (0-10) Eosinophils % 1 % (0-5) Metamyelocytes % 1 % (0-0) H Myelocytes % 1 % (0-0) H Platelet Estimate Adequate (ADEQUATE) Prothrombin Time 9.6 SEC (9.4-11.4) Prothrombin Time INR 0.9 (0.9-1.1) Activated Partial Thromboplast Time 28 SEC (23-33) D-Dimer (Janelle) 6.25 mg/L (0.00-0.50) H Sodium Level 130 mmol/L (136-145) L Potassium Level 3.5 mmol/L (3.5-5.1) Chloride Level 97 mmol/L (98-107) L Carbon Dioxide Level 25 mmol/L (21-32) Anion Gap 8 (6-14) Blood Urea Nitrogen 13 mg/dL (8-26) Creatinine 1.0 mg/dL (0.7-1.3) Estimated GFR (Cockcroft-Gault) 72.1 Glucose Level 121 mg/dL (70-99) H Calcium Level 8.7 mg/dL (8.5-10.1) Magnesium Level 1.4 mg/dL (1.8-2.4) L Total Bilirubin 0.3 mg/dL (0.2-1.0) Direct Bilirubin 0.1 mg/dL (0.0-0.2) Aspartate Amino Transferase (AST) 25 U/L (15-37) Alanine Aminotransferase (ALT) 27 U/L (16-63) Alkaline Phosphatase 60 U/L (46-116) Creatine Kinase 73 U/L (39-308) Troponin I Quantitative < 0.017 ng/mL (0-0.055) RI-Agx-S-Type Natriuretic Peptide 848 pg/mL (0-449) H Total Protein 6.7 g/dL (6.4-8.2) Albumin 2.6 g/dL (3.4-5.0) L Lipase 502 U/L (73-393) H Urine Collection Type Unknown Urine Color Yellow Urine Clarity Clear Urine pH 7.0 Urine Specific Stamps 1.010 Urine Protein Neg (NEG-TRACE) Urine Glucose (UA) Neg mg/dL (NEG) Urine Ketones (Stick) Neg mg/dL (NEG) Urine Blood Neg (NEG) Urine Nitrite Neg (NEG) Urine Bilirubin Neg (NEG) Urine Urobilinogen Dipstick 0.2 mg/dL (0.2 mg/dL) Urine Leukocyte Esterase Neg (NEG) Urine RBC 0 /HPF (0-2) Urine WBC 0 /HPF (0-4) Urine Bacteria 0 /HPF (0-FEW) Urine Opiates Screen Neg (NEG) Urine Methadone Screen Neg (NEG) Urine Barbiturates Neg (NEG) Urine Phencyclidine Screen Neg (NEG) Urine Amphetamine/Methamphetamine Neg (NEG) Urine Benzodiazepines Screen Neg (NEG) Urine Cocaine Screen Neg (NEG) Urine Cannabinoids Screen Neg (NEG) Urine Ethyl Alcohol Neg (NEG) EKG EKG My interpretation EKG shows a sinus with occasionally paced rhythm has PVCs. Ventricular block. Vent. rate 85[] Radiology/Procedures Radiology/Procedures [[address] [id number] IMAGING REPORT Signed PATIENT: FITO PAYTON ACCOUNT: [id number] : 1940 LOCATION: ER AGE: 78 SEX: M EXAM STATUS: REG ER ORD. PHYSICIAN: MAEGAN CRANE MD REASON: Omni 350,100ml IV.Omni 240,30ml PO.Syncope, elevated d-dimer PROCEDURE: CT ANGIO CHEST W ABD PEL W/ PQRS Compliance statement: One or more of the following individualized dose reduction techniques were utilized for this examination: 1. Automated exposure control. 2. Adjustment of the mA and/or kV according to patient size. 3. Use of iterative reconstruction technique. Indication:Syncope. Elevated d-dimer. TECHNIQUE: CT angiogram chest and CT abdomen and pelvis in portal venous phase with IV contrast with multiplanar reformats. COMPARISON: CT abdomen pelvis from 03/08/2017 FINDINGS: Diagnostic quality PE study. There are no central, segmental or subsegmental filling defects in the pulmonary arteries. Heart is normal in size. No pericardial or pleural effusion. Pacemaker leads are seen in the right heart. No enlarged axillary, mediastinal or hilar adenopathy. Subpleural reticulations in the lungs. Bibasilar bronchiectasis, stable. Area of groundglass opacity in the left upper lobe measuring 4.2 cm. Liver, spleen, gallbladder, pancreas, adrenals within normal limits. Bilateral simple renal cysts. No enlarged retroperitoneal or pelvic adenopathy. Moderate atherosclerotic plaque in the abdominal aorta. No free pelvic fluid or ascites. No bowel obstruction. Multiple metallic markers are seen in the prostate. Urinary bladder demonstrates no radiopaque stone. No pneumoperitoneum. Diffuse osseous metastasis. IMPRESSION: 1. No PE. 2. Early changes of interstitial fibrosis. Small area of groundglass opacity in the left upper lobe may be secondary to infection. Follow-up CT chest in 3-4 months recommended. 3. Diffuse osteoblastic osseous metastasis. Electronically signed by: Hima Baer DO (02/09/2019 3:02 AM) [place] [address] IMAGING REPORT Signed PATIENT: FITO PAYTON ACCOUNT: [id number] : 1940 LOCATION: ER AGE: 78 SEX: M EXAM STATUS: REG ER ORD. PHYSICIAN: MAEGAN CRANE MD REASON: Syncope. Hx pacemaker PROCEDURE: CHEST PA & LATERAL CHEST PA LATERAL CLINICAL INDICATION: Syncope. COMPARISON: 03/26/2018 FINDINGS: Heart is normal in size. Stable position of left chest wall cardiac pacer. Mild interstitial opacities without focal solid lesion. No pneumothorax or effusion. Diffuse sclerosis of the bones noted. IMPRESSION: 1. Interstitial opacities may be secondary to atypical/viral infection . 2. Diffuse sclerosis of the bones suggests osteoblastic metastasis. Correlate with bone scan. Electronically signed by: Hima Baer DO (02/09/2019 1:56 AM) [place] [id number] DICTATED AND SIGNED BY: HIMA BAER DO DATE: 02/09/19 0156 CC: MAEGAN CRANE MD; ANGELA WILL MD ~ ][address] [address] IMAGING REPORT Signed PATIENT: FITO PAYTON ACCOUNT: [id number] : 1940 LOCATION: ER AGE: 78 SEX: M EXAM STATUS: PRE ER ORD. PHYSICIAN: MAEGAN CRANE MD REASON: Syncope, fall. Head injury PROCEDURE: CT HEAD AND CERVICAL SPINE WO PQRS Compliance statement: One or more of the following individualized dose reduction techniques were utilized for this examination: 1. Automated exposure control. 2. Adjustment of the mA and/or kV according to patient size. 3. Use of iterative reconstruction technique. Indication:Syncope. Fall. TECHNIQUE: CT head without IV contrast COMPARISON: 03/26/2018 FINDINGS: No pathologic extra-axial or intra-axial fluid collection. The ventricles and basal cisterns are within normal limits. Mild diffuse atrophy. No acute intracranial bleed. No large scalp hematoma. Orbits are within normal limits. No focal loss of salinas-white differentiation. No acute calvarial fractures. Visualized paranasal sinuses and mastoid air cells are clear. IMPRESSION: No acute intracranial bleed or calvarial fracture. Indication:Fall. TECHNIQUE: CT of the cervical spine without IV contrast with multiplanar reformats. COMPARISON:None FINDINGS: Cervical spine is in normal anatomic alignment. Atlantoaxial joint interval is preserved with mild degenerative changes. No compression deformities. Facet joints are in normal anatomic alignment. Multilevel intervertebral disc space narrowing with endplate sclerosis and osteophyte formation. No acute fractures. Multifocal areas of sclerosis seen. Visualized noncontrast sections through the neck soft tissue are within normal limits. Clear lung apices. IMPRESSION: 1. No acute fractures. 2. Multifocal area of sclerosis suggests also blastic metastasis. Electronically signed by: Hima Baer DO (02/09/2019 12:54 AM) [facility] DICTATED AND SIGNED BY: HIMA BAER DO DATE: 02/09/19 0054 Course & Med Decision Making Course & Med Decision Making Pertinent Labs and Imaging studies reviewed. (See chart for details) Discussed presentation, testing and tx. plan with Dr. Liang , will accept pt at [facility] for further tx. and evaluation. [] Final Impression Final Impression 1. Syncope[] 2. Anemia-macrocytic hyperchromic disease Hgb 10.l 3. Elevated Segs 80, with Metamyelocytes 4. Elevated D-dimer 6.25 5. Hyponatremia 130 6. Elevated Glucose 121 7. Hypomagnesium 1.4 8. Malnutrition Alb. 2.6 9. Elevated Lipase 502 10. Lt. upper Lobe Pulmonary Infiltrate 11. Diffuse Osteoblastic Metastasis Dragon Disclaimer Dragon Disclaimer This electronic medical record was generated, in whole or in part, using a voice recognition dictation system. Dragon Disclaimer This chart was dictated in whole or in part using Voice Recognition software in a busy, high-work load, and often noisy Emergency Department environment. It may contain unintended and wholly unrecognized errors or omissions. Dragon Disclaimer This chart was dictated in whole or in part using Voice Recognition software in a busy, high-work load, and often noisy Emergency Department environment. It may contain unintended and wholly unrecognized errors or omissions. MAEGAN CRANE MD Feb 09, 2019 00:04
[2019-02-09 00:21] LABS: BASO % 1 % (0-3); EOS % 1 % (0-3); HEMATOCRIT 28.9 % (39.0-53.0); HEMOGLOBIN 10.1 g/dL (13.0-17.5); LYMPH # 0.3 x10^3/uL (1.0-4.8); LYMPH % 8 % (24-48); MEAN CORPUSCULAR HEMOGLOBIN 36 pg (25-35); MEAN CORPUSCULAR HGB CONC 35 g/dL (31-37); MEAN CORPUSCULAR VOLUME 103 fL (79-100); MONO # 0.3 x10^3/uL (0.0-1.1); MONO % 10 % (0-9); NEUT # 2.7 x10^3uL (1.8-7.7); NEUT % 80 % (31-73); PLATELET COUNT 176 x10^3/uL (140-400); RED CELL DISTRIBUTION WIDTH 15.6 % (11.5-14.5); WHITE BLOOD COUNT 3.3 x10^3/uL (4.0-11.0)
[2019-02-09] MEDS ORDERED: IV RINGERS SOLUTION,LACTATED 1,000 ML IV SCH (00:30)
[2019-02-09 00:38] LABS: ALBUMIN 2.6 g/dL (3.4-5.0); CALCIUM 8.7 mg/dL (8.5-10.1); DIRECT BILIRUBIN 0.1 mg/dL (0.0-0.2); GFR 72.1; MAGNESIUM 1.4 mg/dL (1.8-2.4); POTASSIUM 3.5 mmol/L (3.5-5.1); TOTAL BILIRUBIN 0.3 mg/dL (0.2-1.0); TOTAL PROTEIN 6.7 g/dL (6.4-8.2)
[2019-02-09] MEDS: ONDANSETRON PF 4 MG/2 ML VIAL. IVP ONE ×2 (00:46→00:48)
[2019-02-09 00:55] LABS: % BANDS 3 % (0-9); % EOS 1 % (0-5); % LYMPHS 6 % (24-48); % METAS 1 % (0-0); % MONOS 8 % (0-10); % MYELOS 1 % (0-0); % SEGS 80 % (35-66)
[2019-02-09 00:56] LABS: PLT ESTIMATE ADEQUATE (ADEQUATE)
--- NOTE | 2019-02-09 00:57 | RAD ---
PQRS Compliance statement: One or more of the following individualized dose reduction techniques were utilized for this examination: 1. Automated exposure control. 2. Adjustment of the mA and/or kV according to patient size. 3. Use of iterative reconstruction technique. Indication:Syncope. Fall. TECHNIQUE: CT head without IV contrast COMPARISON: 03/26/2018 FINDINGS: No pathologic extra-axial or intra-axial fluid collection. The ventricles and basal cisterns are within normal limits. Mild diffuse atrophy. No acute intracranial bleed. No large scalp hematoma. Orbits are within normal limits. No focal loss of salinas-white differentiation. No acute calvarial fractures. Visualized paranasal sinuses and mastoid air cells are clear. IMPRESSION: No acute intracranial bleed or calvarial fracture. Indication:Fall. TECHNIQUE: CT of the cervical spine without IV contrast with multiplanar reformats. COMPARISON:None FINDINGS: Cervical spine is in normal anatomic alignment. Atlantoaxial joint interval is preserved with mild degenerative changes. No compression deformities. Facet joints are in normal anatomic alignment. Multilevel intervertebral disc space narrowing with endplate sclerosis and osteophyte formation. No acute fractures. Multifocal areas of sclerosis seen. Visualized noncontrast sections through the neck soft tissue are within normal limits. Clear lung apices. IMPRESSION: 1. No acute fractures. 2. Multifocal area of sclerosis suggests also blastic metastasis. Electronically signed by: Hima Baer DO (02/09/2019 12:54 AM) [facility]
[2019-02-09] MEDS ORDERED: CONTRAST GIVEN MC PRN (01:45)
[2019-02-09] MEDS ORDERED: IV NORMAL SALINE 50ML 50 ML ONE (01:53)
[2019-02-09] MEDS ORDERED: cefTRIAXone SODIUM 1 GM VIAL ONE (01:53)
[2019-02-09] MEDS ORDERED: SODIUM BICARBONATE 50 MEQ/50 ML VIAL. ONE (01:57)
--- NOTE | 2019-02-09 01:59 | RAD ---
CHEST PA LATERAL CLINICAL INDICATION: Syncope. COMPARISON: 03/26/2018 FINDINGS: Heart is normal in size. Stable position of left chest wall cardiac pacer. Mild interstitial opacities without focal solid lesion. No pneumothorax or effusion. Diffuse sclerosis of the bones noted. IMPRESSION: 1. Interstitial opacities may be secondary to atypical/viral infection . 2. Diffuse sclerosis of the bones suggests osteoblastic metastasis. Correlate with bone scan. Electronically signed by: Hima Baer DO (02/09/2019 1:56 AM) [facility]
[2019-02-09] MEDS ORDERED: SODIUM BICARBONATE 50 MEQ/50 ML VIAL. IV ONE (02:00)
[2019-02-09] MEDS ORDERED: IOHEXOL 350 MG/ML 100 ML VIAL. IV ONE (02:00)
[2019-02-09] MEDS ORDERED: methylPREDNISolone SOD SUCC PF 125 MG/2 ML VIAL. IV ONE (02:00)
[2019-02-09] MEDS ORDERED: IV RINGERS SOLUTION,LACTATED 1,000 ML IV ONE (02:00)
[2019-02-09] MEDS ORDERED: ENOXAPARIN ** NOTE DOSE ** SYRINGE SQ ONE (02:00)
[2019-02-09] MEDS ORDERED: SODIUM BICARB ADULT 8.4% 50 MEQ/50 ML DISP.SYRIN. IV ONE (02:00)
[2019-02-09] MEDS ORDERED: IOHEXOL 240 MG/ML 50ML VIAL. PO ONE (02:00)
[2019-02-09] MEDS ORDERED: MAGNESIUM SULFATE 2GM 50 ML IV ONE (02:00)
[2019-02-09] MEDS ORDERED: VANCOMYCIN 1 GM in IV NORMAL SALINE 250ML 250 ML IV ONE (03:00)
[2019-02-09] MEDS ORDERED: VANCOMYCIN PER PHARMACY MC PRN (03:00)
--- NOTE | 2019-02-09 03:05 | RAD ---
PQRS Compliance statement: One or more of the following individualized dose reduction techniques were utilized for this examination: 1. Automated exposure control. 2. Adjustment of the mA and/or kV according to patient size. 3. Use of iterative reconstruction technique. Indication:Syncope. Elevated d-dimer. TECHNIQUE: CT angiogram chest and CT abdomen and pelvis in portal venous phase with IV contrast with multiplanar reformats. COMPARISON: CT abdomen pelvis from 03/08/2017 FINDINGS: Diagnostic quality PE study. There are no central, segmental or subsegmental filling defects in the pulmonary arteries. Heart is normal in size. No pericardial or pleural effusion. Pacemaker leads are seen in the right heart. No enlarged axillary, mediastinal or hilar adenopathy. Subpleural reticulations in the lungs. Bibasilar bronchiectasis, stable. Area of groundglass opacity in the left upper lobe measuring 4.2 cm. Liver, spleen, gallbladder, pancreas, adrenals within normal limits. Bilateral simple renal cysts. No enlarged retroperitoneal or pelvic adenopathy. Moderate atherosclerotic plaque in the abdominal aorta. No free pelvic fluid or ascites. No bowel obstruction. Multiple metallic markers are seen in the prostate. Urinary bladder demonstrates no radiopaque stone. No pneumoperitoneum. Diffuse osseous metastasis. IMPRESSION: 1. No PE. 2. Early changes of interstitial fibrosis. Small area of groundglass opacity in the left upper lobe may be secondary to infection. Follow-up CT chest in 3-4 months recommended. 3. Diffuse osteoblastic osseous metastasis. Electronically signed by: Hima Baer DO (02/09/2019 3:02 AM) [facility]
[2019-02-09] MEDS ORDERED: IV NORMAL SALINE 500ML 500 ML ONE (03:14)
[2019-02-09] MEDS ORDERED: VANCOMYCIN 1 GM VIAL. ONE ×2 (03:14)
[2019-02-09] MEDS ORDERED: VANCOMYCIN 2 GM in IV NORMAL SALINE 500ML 500 ML IV ONE (03:30)
--- NOTE | 2019-02-09 04:00 | EKG ---
[address] [address] Test Date: 2019-02-08 Test Time: 23:52:07 Pat Name: FITO PAYTON Department: Room: Gender: M [employer] Professor: : 1940 Requested By: MAEGAN CRANE Order Number: [id number] Reading MD: Measurements Intervals [place] Rate: 85 P: 27 MD: 184 QRS: -105 QRSD: 164 T: 68 QT: 410 QTc: 494 Interpretive Statements SINUS RHYTHM VENTRICULAR PREMATURE COMPLEX(ES) ABNORMAL RIGHT SUPERIOR AXIS DEVIATION LOW LIMB LEAD VOLTAGE NON SPECIFIC INTRAVENTRICULAR BLOCK QRS(T) CONTOUR ABNORMALITY CONSISTENT WITH ANTERIOR INFARCT PROBABLY OLD CONSISTENT WITH INFEROLATERAL INFARCT ABNORMAL ECG RI6.01 No previous ECG available for comparison
[2019-02-09 04:37] LABS: BARBITURATES NEG (NEG); BENZODIAZEPINES NEG (NEG); CANNABINOIDS NEG (NEG); COCAINE NEG (NEG); METHADONE NEG (NEG); OPIATES NEG (NEG); PHENCYCLIDINE NEG (NEG)
[2019-02-09 04:43] LABS: AMPHETAMINE/METHAMPHETAMINE NEG (NEG)
[2019-02-09 04:45] VITALS: BP 153/67
[2019-02-09 04:54] LABS: BACTERIA,URINE 0 /HPF (0-FEW); BILIRUBIN,URINE NEG (NEG); CLARITY,URINE CLEAR; COLOR,URINE YELLOW; GLUCOSE,URINE NEG (NEG); NITRITE,URINE NEG (NEG); RBC,URINE 0 /HPF (0-2); UROBILINOGEN,URINE 0.2 mg/dL (0.2 mg/dL); WBC,URINE 0 /HPF (0-4)
== END 2019-02-09 05:07 | disposition short-term general hospital (02) ==
LOC: ER 23:48
DX: R55 Syncope and collapse (principal); D53.9 Nutritional anemia, unspecified; R70.0 Elevated erythrocyte sedimentation rate; E87.1 Hypo-osmolality and hyponatremia; R73.9 Hyperglycemia, unspecified; E83.42 Hypomagnesemia; E46 Unspecified protein-calorie malnutrition; R74.8 Abnormal levels of other serum enzymes; R91.8 Other nonspecific abnormal finding of lung field; C41.9 Malignant neoplasm of bone and articular cartilage, unspecified; F41.9 Anxiety disorder, unspecified; M19.90 Unspecified osteoarthritis, unspecified site; I25.810 Atherosclerosis of coronary artery bypass graft(s) without angina pectoris; J44.9 Chronic obstructive pulmonary disease, unspecified; I25.2 Old myocardial infarction; Z86.2 Personal history of diseases of the blood and blood-forming organs and certain disorders involving the immune mechanism; Z68.29 Body mass index [BMI] 29.0-29.9, adult; Z95.0 Presence of cardiac pacemaker; Z98.84 Bariatric surgery status; Z87.891 Personal history of nicotine dependence
CPT/HCPCS: 36415; 70450; 71046; 71275; 72125; 74177; 80048; 80076; 80307; 81001; 82550; 83690; 83735; 83880; 84443; 84484; 85007; 85025; 85379; 85610; 85730; 86850; 86900; 86901; 87040; 93005; 96361; 96365; 96366; 96367; 96368; 96372; 96375; 99285; J0696; J1650; J2930; J3370; J3475; J7040; J7120; Q9966; Q9967; J2405